=== PATIENT | male | born 2000 | race Caucasian/White ===

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

== ENCOUNTER → 2022-01-25 | Outpatient (CLI) | payer OTHER, BC | LOC: COL.RAD 11:30 | DX: N20.0 Calculus of kidney (principal) ==